=== PATIENT | female | born 1965 | race Caucasian/White ===

== ENCOUNTER 2016-07-23 15:17 | Emergency (ER) | payer MEDICARE, OTHER ==
[2016-07-23 16:46] LABS: BASOPHIL 0.5 % (0-2); EOSINOPHIL 1.5 % (0-5); HGB 11.2 g/dl (12.5-16.0); MCH 26.5 pg (25.0-31.0); MCHC 30.3 g/dL (32.0-36.0); MCV 87.5 fL (78.0-100.0); MONOCYTE 5.9 % (0-12); MPV 9.2 fL (6.0-9.5); NEUTROPHIL 80.1 % (41-80); PLT 350 K/uL (150-400); RBC 4.23 M/uL (4.20-5.40); RDW 15.9 % (11.5-14.0); WBC 8.7 K/uL (4.0-10.5)
[2016-07-23 17:06] LABS: ALBUMIN 4.1 g/dL (3.5-5.0); BILIRUBIN - TOTAL 0.2 mg/dL (0.1-1.0); GLOBULIN (CALCULATION) 3.8 g/dL (2.2-4.2); POTASSIUM 6.2 mmol/L (3.5-5.1); TOTAL PROTEIN 7.9 g/dL (6.4-8.3)
[2016-07-23 18:05] LABS: POTASSIUM 6.4 mmol/L (3.5-5.1)
== END 2016-07-23 19:32 | disposition home or self-care (01) ==
LOC: FER 15:17
PROVIDERS: Emergency Medicine
DX: L03.311 Cellulitis of abdominal wall (principal); E87.5 Hyperkalemia; K94.23 Gastrostomy malfunction; I10 Essential (primary) hypertension; E11.9 Type 2 diabetes mellitus without complications; F41.9 Anxiety disorder, unspecified; G89.29 Other chronic pain; Z88.1 Allergy status to other antibiotic agents; Z88.8 Allergy status to other drugs, medicaments and biological substances; Z79.84 Long term (current) use of oral hypoglycemic drugs; Z79.4 Long term (current) use of insulin; Z79.899 Other long term (current) drug therapy; Y83.3 Surgical operation with formation of external stoma as the cause of abnormal reaction of the patient, or of later complication, without mention of misadventure at the time of the procedure
CPT/HCPCS: 36415; 74000; 80048; 80053; 85025; 86403; 87070; 87077; 87186; 87205; 93005